=== PATIENT | female | born 1995 | race Hispanic/Latino ===

== ENCOUNTER → 2018-03-28 | Outpatient (CLI) | payer OTHER ==
[~2018-03-28] MED LIST: FENTANYL CITRATE/PF 100MCG/2 ML INJ ONE; IOPAMIDOL 370 MG/ML 200 ML INFUS..BTL INJ ONE; MORPHINE SULFATE INJ 4 MG/ML INJ ONE; SODIUM CHLORIDE 0.9% 50ML 50 ML ONE; TYLENOL # 31 EA PO
--- NOTE | 2018-03-28 16:14 | Diagnostic Imaging Report ---
EXAMINATION: CT of the abdomen and pelvis with contrast. TECHNIQUE: Spiral CT images of the abdomen and pelvis were performed from the lung bases to the lesser trochanters after the intravenous administration of 100 cc of Isovue-370 and the oral administration of water. Coronal and sagittal reformatted images were obtained. COMPARISON: None. CLINICAL HISTORY:Abdominal pain, hernia DISCUSSION: ABDOMEN/PELVIS: LOWER THORAX:Trace subsegmental atelectasis in the dependent lower lobes. HEPATOBILIARY: No focal hepatic lesions. No intra-or extrahepatic biliary ductal dilation. The gallbladder is normal. SPLEEN: No splenomegaly. PANCREAS: No focal masses or ductal dilatation. ADRENALS: No adrenal nodules. KIDNEYS/URETERS: No hydronephrosis, stones, or solid mass lesions. Some centimeter hypoattenuating lesion in the left kidney is too small to further characterize but likely representing a small cyst. PELVIC ORGANS/BLADDER: Urinary bladder is incompletely distended but otherwise unremarkable. Uterus is neutral in position and appears normal. No adnexal mass. PERITONEUM/RETROPERITONEUM: No free air or fluid. LYMPH NODES: No pelvic sidewall, retroperitoneal, or mesenteric lymphadenopathy. VESSELS: Abdominal aorta, major branch vessels, and iliac arterial systems are well-visualized and patent. Hepatic arterial anatomy appears conventional. Single renal artery perfuses each kidney. Portal vein, splenic vein, and central superior mesenteric vein are patent. GI TRACT: The large bowel shows no evidence of distention or wall thickening. The descending colon is largely collapsed and poorly evaluated. The appendix is normal. No small bowel dilatation to suggest obstruction. BONES AND SOFT TISSUE: Umbilical hernia neck measures 1.1 cm transversely. The hernia contains omental fat with mild inflammatory stranding. Otherwise no focal soft tissue abnormalities. No osseous destructive lesions. IMPRESSION: No acute intra-abdominal or pelvic CT abnormalities. Small umbilical hernia contains mildly inflamed omental fat. Signed by: Dr. Alex Sheehan M.D. on 03/28/2018 4:11 PM
== END ==
LOC: CT 14:49
PROVIDERS: ATTEND Internal Medicine
DX: K46.0 Unspecified abdominal hernia with obstruction, without gangrene (principal); R10.9 Unspecified abdominal pain
CPT/HCPCS: 74177; 81025; Q9967

== ENCOUNTER 2018-03-29 09:12 | Observation (INO) | payer OTHER ==
[~2018-03-29] VITALS: Ht 162.6 cm; Wt 61.6 kg
--- OUTSIDE RECORDS SUMMARY | 2018-03-29 09:14 | XMS REPORT ---
Author Author [facility] Address Unknown Phone Unavailable Care Team Providers Care Headlight Adjuster Name Role Phone Elif MENDIETA Unavailable Unavailable Problems This patient has no known problems. Allergies, Adverse Reactions, Alerts This patient has no known allergies or adverse reactions. Medications This patient has no known medications. Results Test Description Test Time Test Comments Text Results Atomic Results Result Comments CT ABDOMEN/PELVIS W 2018-03-28 16:04:00 [place] [address] Patient Name: GENE SHEIKH MR #: [id number] : 1995 Age/Sex: 22/F Req #: [id number] Adm Physician: Ordered by: RAMONA MENDIETA MD Report #: [id number] Location: CT Room/Bed: Procedure: [id number] CT/CT ABDOMEN/PELVIS W Exam Date: Exam Time: REPORT STATUS: Signed EXAMINATION: CT of the abdomen and pelvis with contrast. TECHNIQU E: Spiral CT images of the abdomen and pelvis were performed from the lung bases to the lesser trochanters after the intravenous administration of 100 cc of Isovue-370 and the oral administration of water. Coronal and sagittal reformatted images were obtained. COMPARISON: None. CLINICAL HISTORY:Abdominal pain, hernia DISCUSSION: ABDOMEN/PELVIS: LOWER THORAX:Trace subsegmental atelectasis in the dependent lower lobes. HEPATOBILIARY: No focal hepatic lesions. No intra-or extrahepatic biliary ductal dilation. The gallbladder is normal. SPLEEN: No splenomegaly. PANCREAS: No focal masses or ductal dilatation. ADRENALS: No adrenal nodules. KIDNEYS/URETERS: No hydronephrosis, stones, or solid mass lesions. Some centimeter hypoattenuating lesion in the left kidney is too small to further characterize but likely representing a small cyst. PELVIC ORGANS/BLADDER: Urinary bladder is incompletely distended but otherwise unre markable. Uterus is neutral in position and appears normal. No adnexal mass. PERITONEUM/RETROPERITONEUM: No free air or fluid. LYMPH NODES: No pelvic sidewall, retroperitoneal, or mesenteric lymphadenopathy. VESSELS: Abdominal aorta, major branch vessels, and iliac arterial systems are well- visualized and patent. Hepatic arterial anatomy appears conventional. Single renal artery perfuses each kidney. Portal vein, splenic vein, and central superior mesenteric vein are patent. GI TRACT: The large bowel shows no evidence of distention or wall thickening. The descending colon is largely collapsed and poorly evaluated. The appendix is normal. No small bowel dilatation to suggest obstruction. BONES AND SOFT TISSUE: Umbilical hernia neck measures 1.1 cm transversely. The hernia contains omental fat with mild inflammatory stranding. Otherwise no focal soft tissue abnormalities. No osseous destructive lesions. IMPRESSION: No acute intra-abdominal or pelvic CT abnormalities. Small umbilical hernia contains mildly inflamed omental fat. Signed by: Dr. Wayne Mallory M.D. on 03/28/2018 4:11 PM Dictated By: WAYNE MALLORY MD [id number] Transcribed By: AAMIR on 03/28/18 1611 COPY TO: RAMONA MENDIETA MD
[2018-03-29] MEDS ORDERED: SODIUM CHLORIDE 0.9% 1000ML 1,000 ML IV STA (09:34)
[2018-03-29 10:03] LABS: BASOPHILS % 0.5 % (0.0-1.0); EOSINOPHILS % 0.5 % (0.0-6.0); HEMATOCRIT 37.3 % (34.2-44.1); HEMOGLOBIN 12.7 g/dL (12.0-16.0); LYMPHOCYTES # (AUTO) 1.3 (1.0-3.2); LYMPHOCYTES % 22.8 % (18.0-39.1); MEAN CORPUSCULAR HEMOGLOBIN 31.2 pg (28-32); MEAN CORPUSCULAR VOLUME 91.6 fL (81-99); MONOCYTES # (AUTO) 0.4 (0.2-0.8); MONOCYTES % 7.1 % (4.4-11.3); NEUTROPHILS # (AUTO) 3.8 (2.1-6.9); NEUTROPHILS % 68.7 % (38.7-80.0); PLATELET COUNT 188 x10e3/uL (140-360); RED BLOOD COUNT 4.07 x10e6/uL (3.6-5.1); RED CELL DISTRIBUTION WIDTH 12.3 % (11.7-14.4)
[2018-03-29 10:08] LABS: CLARITY,URINE SL CLOUDY (CLEAR); COLOR,URINE YELLOW (YELLOW); LEUKOCYTE ESTERASE ,URINE TRACE (NEGATIVE); NITRITE,URINE NEGATIVE (NEGATIVE)
[2018-03-29 10:09] LABS: BILIRUBIN,URINE NEGATIVE (NEGATIVE); KETONES,URINE NEGATIVE (NEGATIVE); PROTEIN,URINE DIPSTICK NEGATIVE (NEGATIVE); URINE UROBILINOGEN 0.2 mg/dL (0.2 - 1)
[2018-03-29 10:16] LABS: INR 1.03; PARTIAL THROMBOPLASTIN TIME 37.7 seconds (23.8-35.5); PROTHROMBIN TIME 14.4 seconds (11.9-14.5)
[2018-03-29 10:20] LABS: BACTERIA,URINE MANY /HPF; EPITHELIAL CELLS,URINE MANY /LPF; TRANSITIONAL EPI CELLS,URINE FEW
[2018-03-29 10:28] LABS: ALANINE AMINOTRANSFERASE 41 IU/L (0-55); ALBUMIN 4.3 g/dL (3.5-5.0); ALBUMIN/GLOBULIN RATIO 1.5 (0.8-2.0); ALKALINE PHOSPHATASE 81 IU/L (40-150); ANION GAP 12.7 mmol/L (8-16); BLOOD UREA NITROGEN 12 mg/dL (7-26); BUN/CREATININE RATIO 16 (6-25); CALCIUM 9.4 mg/dL (8.4-10.2); CARBON DIOXIDE 25 mmol/L (22-29); CHLORIDE 105 mmol/L (98-107); CREATININE, SERUM 0.75 mg/dL (0.57-1.11); EST GLOMERULAR FILTRATION RATE > 60 ML/MIN (60-); GLUCOSE 83 mg/dL (74-118); POTASSIUM 3.7 mmol/L (3.5-5.1); SODIUM 139 mmol/L (136-145)
[2018-03-29] MEDS ORDERED: KETOROLAC TROMETHAMINE 30 MG/ML VIAL IV STA (10:48)
[2018-03-29] MEDS ORDERED: SODIUM CHLORIDE 0.9% 1000ML 1,000 ML IV SCH (10:50)
[2018-03-29] MEDS ORDERED: MORPHINE SULFATE INJ 4 MG/ML INJ IV PRN (11:00)
[2018-03-29] MEDS ORDERED: MORPHINE SULFATE 2 MG/ML SYR IV PRN (11:00)
[2018-03-29] MEDS ORDERED: CEFOXITIN 1GM/ NS 50ML 50 ML IV SCH ×3 (11:00→12:00)
[2018-03-29] MEDS ORDERED: ONDANSETRON HCL INJ 2 MG/ML VIAL IV PRN ×3 (11:00→22:21)
--- NOTE | 2018-03-29 11:32 | NUR ---
rec'd report in walking rounds with sukhjinder romero
--- NOTE | 2018-03-29 11:32 | NUR ---
VERBAL REPORT GIVEN TO JARROD VALDIVIA.
--- NOTE | 2018-03-29 11:33 | NUR ---
DR. HALL IN ROOM TO UPDATE PT RE SX CONSULT WITH DR. Janell JURADO
--- NOTE | 2018-03-29 14:37 | NUR ---
CONSENT PLACED ON THE CHART FOR O.R. DEPT. WAS CALLED AND ARE EXPECTING THE PT.
[2018-03-29] MEDS ORDERED: BUPIVACAINE 0.25%/EPI 30ML SDV INJ ONE (14:59)
--- NOTE | 2018-03-29 15:01 | History and Physical ---
PREOP H AND P/CONSULT H AND P CHIEF COMPLAINT: Abdominal pain. HISTORY OF PRESENT ILLNESS/HOSPITALIZATION COURSE: The patient is a pleasant 22-year-old healthy female admitted complaining of abdominal pain at the area of the umbilicus for 2-3 days. No nausea, vomiting or diarrhea. No fever or chills. The patient developed severe pain and was seen by her primary care physician, Dr. Sergio Alba through the emergency room. She had a workup with a CT scan that revealed an incarcerated umbilical hernia with some stranding of omental fat in the incarceration. PAST MEDICAL HISTORY: Unremarkable. PAST SURGICAL HISTORY: Unremarkable. She does not drink. Does not smoke. She is taking no medicines. FAMILY HISTORY: Noncontributory. ALLERGIES: NO ALLERGIES. PHYSICAL EXAMINATION GENERAL: Reveals a 22-year-old female awake, alert and in no acute distress. VITAL SIGNS: Stable. Her BMI is 23. HEENT: Reveals no acute process. LUNGS: Clear. HEART: Reveals regular sinus rhythm. ABDOMEN: Flat. There is a palpable incarcerated umbilical hernia with skin changes. Tender to palpation. The patient has evidence of piercing of the umbilicus, but the piercing has been removed. The bowel sounds are present. There are no peritoneal signs. PELVIS: Deferred. EXTREMITIES: No clubbing, cyanosis or edema. LYMPHATICS: No adenopathy. NEUROLOGICAL: Grossly unremarkable. ASSESSMENT: Incarcerated umbilical hernia. PLAN: Proceed with repair of incarcerated umbilical hernia. Will decide intraoperatively whether we place mesh or not. The procedure, indications, benefits, and risks have been discussed with the patient and her family, and she agrees to proceed with surgery. Job#: [id number] JARETH
[2018-03-29] MEDS ORDERED: HYDROMORPHONE 1MG/1ML INJ IV PRN (16:15)
--- NOTE | 2018-03-29 16:40 | Operative Report ---
DATE OF PROCEDURE: March 29, 2018 PREOPERATIVE DIAGNOSIS: Incarcerated umbilical hernia. POSTOPERATIVE DIAGNOSIS: Incarcerated umbilical hernia. PROCEDURE PERFORMED: Repair of incarcerated umbilical hernia. ANESTHESIA: General. ESTIMATED BLOOD LOSS: Minimal. DRAINS: None. COMPLICATIONS: None. INDICATIONS AND FINDINGS: Patient is a 22-year-old female admitted through the emergency room, complaining of umbilical bulge and pain. CT scan revealed incarcerated umbilical hernia with the mild inflammation of the omentum. INTRAOPERATIVE FINDINGS: A small 1.5-cm umbilical defect with small amount of fat. Because of the small size of the defect, the defect was repaired primarily. DESCRIPTION OF PROCEDURE: With the patient lying on the operating table in the supine position after administration of general anesthesia, she was prepped and draped for repair of umbilical hernia. An incision was made inferior to the umbilicus and dissection down through skin and subcutaneous tissue, down to the hernia. The hernia was from the surrounding tissues and then the undersurface of the skin was from the hernia. The hernia consisted of properitoneal fat and a small piece of omentum was all excised down to healthy fascia. The defect was still very small, about 1.5 cm. We then decided to close the defect primarily after checking the hemostasis was absolute. For this, we used a series of interrupted 2-0 Ethibond sutures. The wound was irrigated. Bleeding points cauterized. The fascia infiltrated with 0.25% Marcaine with epinephrine, and then the wound was closed in 2 layers using 3-0 Vicryl for the soft tissues. The skin was closed using 3-0 silk. Sterile dressing was applied. The patient tolerated the procedure well, taken to recovery room in stable condition. Job#: [id number] LONNIE
[2018-03-29] MEDS: HYDROCODONE/APAP 7.5MG-325MG 1 EA TAB PO PRN ×2 (18:20→22:48)
[2018-03-29] MEDS: DEXTROSE 5%/LACTATED RINGERS 1,000 ML IV SCH (18:20)
[2018-03-29 18:32] VITALS: BP 112/58
[2018-03-29 18:43] VITALS: BP 112/58
[2018-03-29 18:51] VITALS: BP 112/58
[2018-03-29] MEDS ORDERED: KETOROLAC TROMETHAMINE 30 MG/ML VIAL ONE (19:13)
[2018-03-29] MEDS ORDERED: SEVOFLURANE INHAL SOLN 250 ML PEN BTL ONE (19:13)
[2018-03-29] MEDS ORDERED: DEXAMETHASONE SOD PHOS INJ 4 MG/ML VIAL ONE (19:13)
[2018-03-29] MEDS ORDERED: MIDAZOLAM HCL 2 MG/2 ML VIAL ONE (19:13)
[2018-03-29] MEDS ORDERED: LIDOCAINE HCL 2% LOCAL INJ 5 ML SDV VIAL INJ ONE (19:13)
[2018-03-29] MEDS ORDERED: ONDANSETRON HCL INJ 2 MG/ML VIAL ONE (19:13)
[2018-03-29] MEDS ORDERED: ROCURONIUM BROMIDE 10 MG/ML 5ML VIAL ONE (19:13)
[2018-03-29] MEDS ORDERED: PROPOFOL IV EMULSION 10 MG/ML 20 ML VIAL ONE (19:13)
[2018-03-29] MEDS ORDERED: FENTANYL CITRATE/PF 100MCG/2 ML INJ ONE (19:13)
[2018-03-29] MEDS: HYDROMORPHONE 2MG/ML 2 MG/ML ML IV PRN (19:55)
--- NOTE | 2018-03-29 19:55 | NUR ---
DRESSING DRY AND INTACT TO THE ABDOMEN, ASSISTED PATIENT TO THE RESTROOM. SHE'S NOW BACK IN THE BED WITHOUT RESPIRATORY DISTRESS. MEDICATED WITH DILAUDID ORDERED FOR ABDOMINAL PAIN, CALL LIGHT IN EASY REACH, INSTRUCTED TO CALL FOR ASSISTANCE UPON GETTING OUT OF THE BED.
[2018-03-29 20:00] VITALS: BP 108/61
[2018-03-29 20:25] VITALS: BP 108/61
[2018-03-29] MEDS: CEFOXITIN 1GM/ NS 50ML 50 ML IV SCH (22:47)
--- NOTE | 2018-03-29 22:48 | NUR ---
PATIENT C/O PAIN TO THE ABDOMEN WITH PAIN SCORE #6, MEDICATED WITH NORCO 1TAB ORDERED. CALL LIGHT IN EASY REACH, INSTRUCTED TO CALL FOR ASSISTANCE NEEDED.
[2018-03-30 00:30] VITALS: BP 108/62
[2018-03-30] MEDS: HYDROMORPHONE 2MG/ML 2 MG/ML ML IV PRN ×2 (02:17→10:57)
--- NOTE | 2018-03-30 02:18 | NUR ---
PATIENT C/O ABDOMINAL PAIN, MEDICATED WITH DILAUDID ORDERED. CALL LIGHT WITHIN EASY REACH, INSTRUCTED TO CALL FOR ASSISTANCE UPON GETTING OUT OF THE BED DUE TO SIDE EFFECT FROM THE MEDICATION.
[2018-03-30] MEDS: DEXTROSE 5%/LACTATED RINGERS 1,000 ML IV SCH (03:40)
[2018-03-30 04:46] LABS: BASOPHILS % 0.2 % (0.0-1.0); HEMATOCRIT 34.9 % (34.2-44.1); HEMOGLOBIN 11.9 g/dL (12.0-16.0); LYMPHOCYTES # (AUTO) 1.2 (1.0-3.2); LYMPHOCYTES % 10.9 % (18.0-39.1); MEAN CORPUSCULAR HEMOGLOBIN 31.4 pg (28-32); MEAN CORPUSCULAR HGB CONC 34.1 g/dL (31-35); MEAN CORPUSCULAR VOLUME 92.1 fL (81-99); MONOCYTES # (AUTO) 0.6 (0.2-0.8); MONOCYTES % 5.5 % (4.4-11.3); NEUTROPHILS % 83.1 % (38.7-80.0); PLATELET COUNT 189 x10e3/uL (140-360); RED BLOOD COUNT 3.79 x10e6/uL (3.6-5.1); RED CELL DISTRIBUTION WIDTH 11.9 % (11.7-14.4)
[2018-03-30 04:58] LABS: ANION GAP 12.7 mmol/L (8-16); BLOOD UREA NITROGEN 6 mg/dL (7-26); BUN/CREATININE RATIO 10 (6-25); CALCIUM 8.8 mg/dL (8.4-10.2); CARBON DIOXIDE 23 mmol/L (22-29); CHLORIDE 106 mmol/L (98-107); CREATININE, SERUM 0.62 mg/dL (0.57-1.11); EST GLOMERULAR FILTRATION RATE > 60 ML/MIN (60-); GLUCOSE 128 mg/dL (74-118); POTASSIUM 4.7 mmol/L (3.5-5.1); SODIUM 137 mmol/L (136-145)
[2018-03-30 05:51] VITALS: BP 96/55
--- NOTE | 2018-03-30 06:50 | NUR ---
rounded with the night nurse nurse, patient aware of change, in no distress. Call tom within reach, bed on lowest position
[2018-03-30 08:00] VITALS: BP 98/60
[2018-03-30 08:20] VITALS: BP 98/60
[2018-03-30] MEDS: CEFOXITIN 1GM/ NS 50ML 50 ML IV SCH (09:54)
[2018-03-30] MEDS ORDERED: TYLENOL # 31 EA PO (10:44)
[2018-03-30 12:00] VITALS: BP 106/70
--- NOTE | 2018-03-30 13:17 | NUR ---
Patient discharged home with written prescription and instructions. She verbalized understanding. IV dc'd, cath intact and small dressing applied.
== END 2018-03-30 13:05 | disposition home or self-care (01) ==
LOC: ER 09:12 → UNDOADMOB 11:11 → ERHOLD 11:11 → OR 14:37 → PACU V 16:17 → IMCU 17:44
PROVIDERS: ADMIT Internal Medicine; ATTEND Internal Medicine
DX: K42.0 Umbilical hernia with obstruction, without gangrene (principal)
CPT/HCPCS: 36415 ×2; 49587; 80048; 80053; 81001; 85025 ×2; 85610; 85730; 88302; 93005; 96361; 96367; 96376; 99284; G0378 ×2; J1100; J1170 ×2; J1885; J2001; J2250; J2405; J2704; J7030; J7121 ×2; 96360; 96365

== ENCOUNTER → 2018-10-10 | Outpatient (CLI) | payer OTHER ==
[~2018-10-10] MED LIST changes: -FENTANYL CITRATE/PF 100MCG/2 ML INJ ONE; -IOPAMIDOL 370 MG/ML 200 ML INFUS..BTL INJ ONE; -MORPHINE SULFATE INJ 4 MG/ML INJ ONE; -SODIUM CHLORIDE 0.9% 50ML 50 ML ONE
--- NOTE | 2018-10-10 15:35 | Diagnostic Imaging Report ---
Abdominal ultrasound. History: Cholecystitis Comparison: CT scan of the abdomen and pelvis dated 03/28/2018. Discussion: Transverse and longitudinal images of the abdomen were obtained demonstrating a liver of normal size and echogenicity measuring 13.7 cm in length. The portal vein is patent with hepatopetal flow and is within normal limits measuring 9 mm in diameter. The biliary tree is within normal limits with the common bile duct measuring 3 mm in diameter. The gallbladder is normal without evidence of stones, wall thickening, or pericholecystic fluid. The sonographic Wray's sign was negative. The kidneys are normal in size and echogenicity bilaterally without evidence of hydronephrosis, stones, or mass. The right kidney measures 10.9 x 5.3 x 5.7 cm and the left kidney measures 11.4 x 4.3 x 4.6 cm. The spleen is normal in size and appearance measuring 10.3 x 4.0 x 4.1 cm. The pancreatic <head and body> are visualized and are normal in appearance. The abdominal aorta is within normal limits measuring 1.6 cm. The IVC is patent. There is no evidence of free fluid. IMPRESSION: Normal abdominal ultrasound. Signed by: Dr. Sarbjit Peacock DO on 10/10/2018 3:32 PM
== END ==
LOC: US 14:29
PROVIDERS: ATTEND Internal Medicine
DX: K81.9 Cholecystitis, unspecified (principal)
CPT/HCPCS: 76700